=== PATIENT | male | born 1975 | race Caucasian/White ===

== ENCOUNTER 2021-02-04 22:36 | Emergency (ER) | payer OTHER, SELFPAY ==
[2021-02-04 22:45] VITALS: BP 147/102; PULSE 75; RESP 18; TEMP 36.8; O2SAT 98; BMI 24.9
--- NOTE | 2021-02-04 22:49 | W.ED.ABDPA2 ---
HPI - Abdominal Pain General: Chief Complaint: Abdominal Pain Stated Complaint: ABD Pain Time Seen by Provider: 02/04/21 22:38 Source: patient Mode of arrival: ambulatory Limitations: no limitations History of Present Illness: HPI narrative: 45-year-old male states has been having abdominal pain for the last day. States its been diffuse in his lower abdomen rates it a 7 out of 10 currently denies any worsening improving factors he states he has been felt like he needed to the bathroom she took some meds he has had bowel movements has improved his pain at all denies any vomiting denies any fever denies any cough denies any body ache. Associated Symptoms: Denies chills, dysuria and fever(s) Review of Systems Const: Denies: fever(s), chills, body aches or change in appetite Eyes: Denies: blurry vision or eye discomfort ENMT: Denies: throat pain or dental pain Card: Denies: chest pain Resp: Denies: dyspnea GI: Reports: abdominal pain : Denies: dysuria Musc: Denies: neck pain or back pain Skin/Breast: Denies: rash Neuro: Denies: headache(s) Psych: Denies: depression Brian/Lymph: Denies: easy bruising All/Imm: Denies: urticaria Physical Exam Const: COMMON NORMALS: no acute distress, patient oriented x3 and healthy appearing HENMT: COMMON NORMALS: normocephalic and atraumatic HEAD & SCALP: normocephalic and atraumatic Eye: COMMON NORMALS: Equal, round and reactive pupils present and EOMs intact bilaterally PUPIL: Yes Equal, round and reactive pupils present Neck/C-Spine: COMMON NORMALS: full ROM and supple Chest: COMMONS NORMALS: normal inspection of the chest and normal palpation of entire chest wall Resp: COMMON NORMALS: normal respiratory effort, No retractions, No use of accessory muscles and clear to auscultation bilaterally AUSCULTATION: clear to auscultation bilaterally Cardio: COMMON NORMALS: regular rate, regular rhythm and No murmurs present (Cardio) RATE: regular rate RHYTHM: regular rhythm GI: COMMON NORMALS: Normal to inspection, nondistended, normoactive bowel sounds present, Soft to palpation and no masses PALPATION: Yes Soft to palpation and Yes Tenderness to palpation present (GI) Details: LLQ and RLQ Extremity: COMMON NORMALS: normal to inspection and full ROM Neuro: COMMON NORMALS: patient oriented x3, moves all extremities and no focal motor deficits Psych: COMMON NORMALS: mental status grossly normal, Normal thought process present and cooperative THOUGHT PROCESS: Normal thought process present Skin: COMMON NORMALS: no rashes or lesions noted and no wounds GENERAL SKIN EXAM: no rashes or lesions noted Course Vital Signs: Vital signs: Vital Signs Temperature 98.3 F 02/04/21 22:45 Pulse Rate 64 02/04/21 23:02 Respiratory Rate 19 H 02/04/21 23:18 Blood Pressure 154/103 02/04/21 23:02 Pulse Oximetry 97 02/04/21 23:02 MDM - Abdominal Pain MDM Narrative: Medical decision making narrative: Patient presents with abdominal pain diffuse in nature his pain is improved here with morphine patient's blood work and CT scan are all normal he states his pain is worse with eating could be gastritis did tell him to avoid caffeine chocolate alcohol and spicy foods he is to eat a bland diet we will start him on Protonix we will get him follow-up with surgery inform if his pain worsens he is to return he understands agrees to plan. Lab Data: Labs: Lab Results 02/04/21 02/04/21 02/04/21 23:04 23:22 23:22 WBC 13.3 10^3/uL H 10 ^3/uL (4.0-10.0) RBC 5.49 10^6/uL H 10 ^6/uL (4.1-5.3) Hgb 17.5 g/dL H g/dL (11.7-16.6) Hct 49.8 % % (42.0-52.0) MCV 90.7 fl fl (80-94) MCH 31.9 pg pg (28.0-34.0) MCHC 35.1 g/dL g/dL (30.0-36.0) RDW 12.0 % L % (12.1-15.1) Plt Count 281 10^3/cmm 10^3 /cmm (130-400) MPV 10.1 fL fL (7.4-10.4) Neut % (Auto) 73.6 % % Lymph % (Auto) 21.0 % % Forest % (Auto) 4.3 % % Eos % (Auto) 0.5 % % Baso % (Auto) 0.2 % % Neut # (Auto) 9.82 10^3/uL H 10 ^3/uL (1.8-7.7) Lymph # (Auto) 2.8 10^3/uL 10^3/ uL (0.8-4.8) Forest # (Auto) 0.6 10^3/uL 10^3/ uL (0.2-0.9) Eos # (Auto) 0.1 10^3/uL 10^3/ uL (0.0-0.8) Baso # (Auto) 0.0 10^3/uL 10^3/ uL (0.0-0.1) Nucleated RBC % (a uto) 0 % % Nucleated RBCs # 0.0 /100WBC /100W BC Sodium 136 mmol/L mmol/L (136-145) Potassium 4.2 mmol/L mmol/L (3.5-5.1) Chloride 97 mmol/L L mmol/ L (98-107) Carbon Dioxide 23 mmol/L mmol/L (22-29) Anion Gap 20.2 H (5-19) BUN 10 mg/dL mg/dL (6-20) Creatinine 0.9 mg/dL mg/dL (0.7-1.2) GFR Calculation 91.7 mL/min mL/mi n (90-130) Glucose 120 mg/dL H mg/dL (65-115) Calculated Osmolal ity 282 mOsm/kg L mOs m/kg (285-295) Calcium 8.9 mg/dL mg/dL (8.5-10.5) Total Bilirubin 0.9 mg/dL mg/dL (0.15-1.2) AST 15 U/L U/L (0-40) ALT 20 U/L U/L (0-41) Alkaline Phosphata se 64 IU/L IU/L (40-130) Total Protein 6.9 g/dL g/dL (6.6-8.7) Albumin 4.3 g/dL g/dL (3.5-5.2) Globulin 2.6 g/dL g/dL (1.3-4.6) Lipase 30 U/L U/L (13-60) Urine Color Yellow (Yellow) Urine Appearance Clear (CLEAR) Urine pH 5 (5-7) Ur Specific Gravit y 1.030 (1.005-1.030) Urine Protein Trace (Negative) Urine Glucose (UA) Norm (Normal) Urine Ketones 2+ H (Negative) Urine Blood 2+ H (Negative) Urine Nitrate Negative (Negative) Urine Bilirubin 1+ H (Negative) Urine Urobilinogen 1 mg/dL H mg/dL (Negative) Ur Leukocyte Judy ase Negative (Negative) Urine RBC 0-4 /hpf H /hpf (0-2) Urine WBC None /hpf /hpf (0-5) Ur Squamous Epith Cells None /hpf /hpf (0-5) Amorphous Sediment Not Reportable Urine Bacteria None /hpf /hpf (NONE) Urine Mucus 1+ /hpf /hpf Imaging Data ^: CT Abd/Pel: Radiologist's impression: [facility] [address] [address] [address] Scan Report Signed Patient: Rohan Perrin Unit #: [id number] : 1975 Age/Sex: 45 / M ADM Date: 02/04/21 Loc: ER Room/Bed: Attending Dr: Ordering Provider/Ordering MD: Keiko Parra MD Date of Service: 02/04/21 Procedure(s): CT abdomen pelvis w con* [id number] Accession Number(s): [id number] Report Number: [id number] PROCEDURE INFORMATION: Exam: CT Abdomen And Pelvis With Contrast Exam date and time: 02/04/2021 10:50 PM Age: 45 years old Clinical indication: Abdominal pain; Localized; Patient HX: C/O lower abd pain. TECHNIQUE: Imaging protocol: Computed tomography of the abdomen and pelvis with contrast. Radiation optimization: All CT scans at this facility use at least one of these dose optimization techniques: automated exposure control; mA and/or kV adjustment per patient size (includes targeted exams where dose is matched to clinical indication); or iterative reconstruction. Contrast material: OMNI 300; Contrast volume: 95 ml; Contrast route: INTRAVENOUS (IV); COMPARISON: No relevant prior studies available. RADIATION DOSE METRICS: Total DLP (mGy-cm): 1546.88 FINDINGS: Liver: Normal. No mass. Gallbladder and bile ducts: Contracted gallbladder. Pancreas: Normal. No ductal dilation. Spleen: Calcified splenic granulomas. Adrenal glands: Normal. No mass. Kidneys and ureters: Normal. No hydronephrosis. Stomach and bowel: Unremarkable. No obstruction. No mucosal thickening. Appendix: No evidence of appendicitis. Intraperitoneal space: Unremarkable. No free air. No significant fluid collection. Vasculature: Unremarkable. No abdominal aortic aneurysm. Lymph nodes: Calcified right hilar nodes and/or mediastinal nodes and/or lung granulomas consistent with old granulomatous disease. Urinary bladder: Unremarkable as visualized. Reproductive: Unremarkable as visualized. Bones/joints: Unremarkable. No acute fracture. Soft tissues: Unremarkable. CT/CT abdomen pelvis w con* [id number] IMPRESSION: No acute findings. Radiation Dose CTDIVOL = (mGy): DLP = 1546.88 (mGy-cm) Dictated By: Erik Marshall MD Signed By: Erik Marshall MD Signed Date/Time: 02/05/21 0039 DD/ 2250 Discharge Plan Discharge Patient Disposition: Home Clinical Impression: Abdominal pain Qualifiers: Abdominal location: generalized Qualified Code(s): R10.84 - Generalized abdominal pain Condition: Stable Prescriptions: New hydrocodone-acetaminophen 5-325 mg tablet 1 tab PO Q6H PRN (Reason: pain) Qty: 14 RF: 0 Protonix 40 mg tablet,delayed release (DR/EC) 40 mg PO DAILY Qty: 60 RF: 0 Discharge Orders: Discharge ED (Routine); Ordered 02/05/21 Ordered By: Keiko Parra Referrals: John Salazar MD [Physician] - 1-3 days Discharge Diet: Advance as tolerated Discharge Activity: Resume usual activity Patient Instructions: Abdominal Pain (ED), Opioid Safety Coding Level of Care Code ED Co Teacher for Chg Fwd Exam Comprehensive
[2021-02-04 23:02] VITALS: BP 154/103; PULSE 64; RESP 18; O2SAT 97
[2021-02-04] MEDS: iohexol 300 mg/mL 100 mL Btl IV (23:14)
[2021-02-04 23:18] VITALS: RESP 19
[2021-02-04] MEDS: morphine 4 mg/mL SDV 1 mL IVP (23:18)
[2021-02-04] MEDS: ondansetron 2 mg/ML SDV 2 mL 4 MG IVP (23:19)
[2021-02-04 23:20] LABS: Bilirubin Urine 1+ (Negative); Blood Urine 2+ (Negative); Glucose Urine UA Norm (Normal); Ketones Urine 2+ (Negative); Leukocyte Esterase Urine Negative (Negative); Nitrate Urine Negative (Negative); Protein Urine Trace (Negative); Urine Appearance Clear (CLEAR); Urine Color Yellow (Yellow); Urobilinogen Urine 1 mg/dL (Negative); pH Urine 5 (5-7)
[2021-02-04] MEDS: sodium chloride 0.9% 1,000 ML 999 ML IV (23:20)
[2021-02-04 23:21] LABS: Add Urine Microscopic? YES
[2021-02-04 23:25] LABS: RBC Urine 0-4 /hpf (0-2)
[2021-02-04 23:26] LABS: Add Urine Culture? No; Mucus Urine 1+ /hpf
[2021-02-04 23:28] LABS: Basophils % 0.2 %; Eosinophils # 0.1 10^3/uL (0.0-0.8); Eosinophils % 0.5 %; Hematocrit 49.8 % (42.0-52.0); Hemoglobin 17.5 g/dL (11.7-16.6); Lymphocytes # 2.8 10^3/uL (0.8-4.8); Mean Corpuscular HGB Conc 35.1 g/dL (30.0-36.0); Mean Corpuscular Hemoglobin 31.9 pg (28.0-34.0); Mean Corpuscular Volume 90.7 fl (80-94); Mean Platelet Volume 10.1 fL (7.4-10.4); Monocytes # 0.6 10^3/uL (0.2-0.9); Monocytes % 4.3 %; Neutrophils # 9.82 10^3/uL (1.8-7.7); Neutrophils % 73.6 %; Nucleated Red Blood Cells % 0 %; Platelet Count 281 10^3/cmm (130-400); Red Blood Count 5.49 10^6/uL (4.1-5.3); White Blood Count 13.3 10^3/uL (4.0-10.0)
[2021-02-04 23:53] LABS: Alanine Aminotransferase 20 U/L (0-41); Albumin Level 4.3 g/dL (3.5-5.2); Alkaline Phosphatase 64 IU/L (40-130); Blood Urea Nitrogen 10 mg/dL (6-20); Calcium 8.9 mg/dL (8.5-10.5); Carbon Dioxide 23 mmol/L (22-29); Chloride 97 mmol/L (98-107); Globulin 2.6 g/dL (1.3-4.6); Glomerular Filtration Rate 91.7 mL/min (90-130); Glucose 120 mg/dL (65-115); Lipase 30 U/L (13-60); Osmolality Calculated 282 mOsm/kg (285-295); Sodium 136 mmol/L (136-145); Total Bilirubin 0.9 mg/dL (0.15-1.2); Total Protein 6.9 g/dL (6.6-8.7)
[2021-02-04 23:54] LABS: Anion Gap 20.2 (5-19); Aspartate Amino Transferase 15 U/L (0-40); Potassium 4.2 mmol/L (3.5-5.1)
[2021-02-05 01:27] VITALS: BP 147/97; PULSE 81; RESP 18; O2SAT 92
--- NOTE | 2021-02-05 06:48 | DCPLANNER ---
industrial sales manager had message to schedule a follow up appointment for patient with general surgery. industrial sales manager emailed patients information to both Anisa and Liya at [facility] / ENT clinic. Patients information will be printed and reviewed. Clinic will call patient with appointment information.
--- NOTE | 2021-02-07 08:56 | DCPLANNER ---
Patient had a follow up appointment scheduled for 02.06.[address] Salinas, at [facility] General Surgery - patient did attend appointment.
== END 2021-02-05 01:29 | disposition home or self-care (01) ==
PROVIDERS: Emergency Provider Emergency Medicine
DX: R10.84 Generalized abdominal pain (principal)
CPT/HCPCS: 74177; 80053; 81001; 83690; 85025; 96361; 96374; 96375; 99283; J2270; J2405; J7030; Q9967